=== PATIENT | male | born 1965 | race African-American/Black ===

== ENCOUNTER → 2019-01-19 16:24 | Outpatient (CLI) | payer MEDICAID | END | disposition home or self-care (01) | LOC: D.RAD 16:24 | PROVIDERS: ATTEND Emergency Medicine | DX: M17.11 Unilateral primary osteoarthritis, right knee (principal); Q74.1 Congenital malformation of knee ==

== ENCOUNTER → 2019-05-04 09:07 | Outpatient (CLI) | payer MEDICAID | END | disposition home or self-care (01) | LOC: D.US 09:00 | PROVIDERS: ATTEND Emergency Medicine | DX: I10 Essential (primary) hypertension (principal) ==